=== PATIENT | female | born 1965 | race Caucasian/White ===

== ENCOUNTER 2017-03-19 22:13 | Emergency (ER) | payer SELFPAY ==
[2017-03-19 23:17] VITALS: BP 130/65
== END 2017-03-19 23:17 | disposition home or self-care (01) ==
LOC: ED 22:13
DX: J03.90 Acute tonsillitis, unspecified (principal); I10 Essential (primary) hypertension; E03.9 Hypothyroidism, unspecified; E11.9 Type 2 diabetes mellitus without complications; Z79.84 Long term (current) use of oral hypoglycemic drugs
CPT/HCPCS: J0561; J1100